=== PATIENT | female | born 1980 | race Caucasian/White ===

== ENCOUNTER 2017-08-01 08:22 | Emergency (ER) | payer OTHER ==
[2017-08-01 08:46] VITALS: BP 124/67
[2017-08-01 15:40] LABS: Chloride TNR mmol/L (98-107); Potassium TNR mmol/L (3.6-5.0); Sodium TNR mmol/L (137-145)
[2017-08-01 15:41] LABS: Anion Gap TNR mmol/L; BUN/Creatinine Ratio TNR; Blood Urea Nitrogen TNR mg/dL (7-17); Carbon Dioxide TNR mmol/L (22-30); Glucose TNR mg/dL (65-100)
[2017-08-01 15:42] LABS: Alanine Aminotransferase TNR units/L (7-56); Albumin TNR g/dL (3.9-5); Albumin/Globulin Ratio TNR %; Bilirubin,Total TNR mg/dL (0.1-1.2); Calcium TNR mg/dL (8.4-10.2); Total Protein TNR g/dL (6.3-8.2)
[2017-08-01 15:43] LABS: Alkaline Phosphatase TNR units/L (35-129); Lipase TNR units/L (13-60)
[2017-08-01 15:46] LABS: Hematocrit TNR % (30.3-42.9); Hemoglobin TNR gm/dl (10.1-14.3); Mean Corpuscular HGB Conc TNR % (30-34); Mean Corpuscular Hemoglobin TNR pg (28-32); Mean Corpuscular Volume TNR fl (79-97); Red Blood Count TNR M/mm3 (3.65-5.03); White Blood Count TNR K/mm3 (4.5-11.0)
[2017-08-01 15:47] LABS: Basophils % (Auto) TNR % (0.0-1.8); Eosinophils % (Auto) TNR % (0.0-4.3); Mean Platelet Volume TNR fl (6-12); Platelet Count TNR K/mm3 (140-440); Red Cell Distribution Width TNR % (13.2-15.2)
[2017-08-01 15:48] LABS: Diff Status TNR
== END 2017-08-01 17:21 | disposition home or self-care (01) ==
LOC: EDBD → ED 08:22 → EDBD 08:22 → ED 17:21
DX: R10.9 Unspecified abdominal pain (principal); Z53.21 Procedure and treatment not carried out due to patient leaving prior to being seen by health care provider
CPT/HCPCS: 36415; 80053; 83690; 84702; 85025; 86850; 86900; 86901